=== PATIENT | female | born 1940 | race Caucasian/White ===

== ENCOUNTER 2024-08-04 09:46 | Inpatient (IN) | payer MEDICARE, OTHER ==
[~2024-08-04] VITALS: Ht 160 cm; Wt 54.5 kg
--- NOTE | ~2024-08-04 | OR ---
[facility] [address] [place], [place] [address] Draft DATE OF OPERATION: 08/05/2024 SURGEON: Yue Patrick DO PREOPERATIVE DIAGNOSIS: Upper gastrointestinal bleed. POSTOPERATIVE DIAGNOSES: Upper gastrointestinal bleed with erosive gastritis, distal esophagitis, hiatal hernia and esophageal varices, mid esophagus nonbleeding. ANESTHESIA: IV sedation. ESTIMATED BLOOD LOSS: Minimal with minimal clot in the stomach. No active resection noted. DRAINS: None. COMPLICATIONS: None. DESCRIPTION OF PROCEDURE: The patient was brought to GI lab, placed in supine position. After induction of IV sedation, oropharynx and a bite block. An Olympus video endoscope was introduced esophagus. On the mid esophagus area some small varices were noted. They were nonbleeding, nonerosive. Scope was passed to the distal esophagus. Grade A esophagitis was noted but no ulcerations were appreciated in the distal esophagus. Scope was advanced in the stomach and general x-rays were carried out. There was some minimal clots and stranding of clot in the stomach. The stomach was thoroughly irrigated and clot was aspirated in its entirety. Significant erosive gastritis was appreciated near the body of the stomach with no active bleeding sites apparent. No ulcerations were noted. No intrinsic or extrinsic masses were appreciated. Scope was then advanced through the . Scope was then brought back into the stomach and further irrigation was carried out. No evidence of bleeding ulcer, bleeding erosive gastritis was noted, was retroflex and GE junction was visualized. Small hiatal hernia was noted, but no ulcerations were appreciated. Scope was then placed in neutral position. Stomach was decompressed. Scope was withdrawn in its entirety. The patient PATIENT NAME: PAUL BRYAN OPERATIVE REPORT DATE OF : 40 REPORT #: [id number] PHYSICIAN: YUE PATRICK DO PCP: AUGUST RUIZ DO REPORT IS CONFIDENTIAL AND NOT TO BE RELEASED WITHOUT AUTHORIZATION [address], [place] [address] Draft tolerated the procedure well and went to recovery room in satisfactory condition. DO YIN Rios/KAL /[id number] Copies: ~ PATIENT NAME: PAUL BRYAN OPERATIVE REPORT DATE OF : 40 REPORT #: [id number] PHYSICIAN: YUE PATRICK DO PCP: AUGUST RUIZ DO REPORT IS CONFIDENTIAL AND NOT TO BE RELEASED WITHOUT AUTHORIZATION
[~2024-08-04 09:46] MED LIST: DILANTIN100 MG PO
[2024-08-04] MEDS ORDERED: SODIUM CHLORIDE 0.9% 1,000 ML IV ONE (10:15)
[2024-08-04 10:48] LABS: BASOPHILS 0.4 % (0-2); EOSINOPHILS 0.2 % (0-6); HEMOGLOBIN 7.2 g/dL (12.0-18.0); LYMPHOCYTES 10.5 % (24-44); MCH 26.8 (27-36); MCHC 32.6 g/dl (30-36); MCV 82.3 fl (81-99); MONOCYTES 6.9 % (0-12); PLATELET COUNT 372 K/uL (140-440); RBC 2.68 M/ul (4.3-5.7); RDW 15.5 (10.5-15.0)
[2024-08-04 11:13] LABS: ALBUMIN 3.3 g/dL (3.4-5.0); ALBUMIN/GLOBULIN RATIO 1.14 (1.1-2.4); ANION GAP 6.5 (7-21); BILIRUBIN, TOTAL 0.2 mg/dL (0.2-1.0); BUN/CREATININE RATIO 27.08 (6.0-28.6); CALCIUM 8.5 mg/dL (8.5-10.1); CREATININE, SERUM 0.96 mg/dL (0.55-1.02); POTASSIUM 4.5 mmol/L (3.5-5.1); PROTEIN, TOTAL 6.2 g/dL (6.4-8.2); TSH, 3RD GENERATION 2.018 uIU/mL (0.358-3.740)
[2024-08-04] MEDS ORDERED: PANTOPRAZOLE SODIUM 40 MG/10 ML VIAL IV ONE (11:45)
[2024-08-04] MEDS ORDERED: LORazepam 2 MG/ML VIAL IV ONE ×2 (11:45→12:00)
[2024-08-04 11:55] LABS: ABO O; ANTIBODY SCREEN NEGATIVE; RH POSITIVE
[2024-08-04 12:23] LABS: BILIRUBIN, URINE NEGATIVE (negative); BLOOD/HGB, URINE NEGATIVE (Negative); KETONE, URINE NEGATIVE (Negative); LEUK ESTERASE, URINE NEGATIVE (negative); NITRITE, URINE NEGATIVE (negative); PH, URINE 6.5 (5-7)
--- NOTE | 2024-08-04 12:46 | EKG ---
[facility] [address] [place], [place] [address] Signed Normal sinus rhythm Nonspecific T wave abnormality Abnormal ECG No previous ECGs available Confirmed by Gavin Goldman DO ([id number]) on 08/04/2024 12:46:05 PM Electronically Signed By: GAVIN GOLDMAN DO 08/04/24 1246 PATIENT NAME: PAUL BRYAN Electrocardiogram DATE OF : 40 PHYSICIAN: GAVIN GOLDMAN DO REPORT #: [id number] REPORT IS CONFIDENTIAL AND NOT TO BE RELEASED WITHOUT AUTHORIZATION
[2024-08-04 13:00] LABS: IS CROSSMATCH COMPATIBLE
[2024-08-04 13:00] LABS: ABO O; RH POSITIVE
[2024-08-04] MEDS ORDERED: LACTATED RINGER'S 1,000 ML IV SCH (13:30)
[2024-08-04] MEDS ORDERED: ondansetron HCL 4 MG/2 ML VIAL IV PRN (13:30)
[2024-08-04] MEDS ORDERED: ACETAMINOPHEN 325 MG TAB PO PRN (13:30)
--- NOTE | 2024-08-04 14:00 | NUR ---
PT ARRIVES TO MEDSUR ROOM FROM ED, AMBULATES TO RESTROOM, VOIDS W/O DIFFICULTY, URINE CLEAR, YELLOW. PT AMBULATES TO STANDING SCALE, USES HAND RAIL FOR ASSISTANCE. PT ASSISTED INTO BED. DAUGHTER AND AT THE BEDSIDE. PT EDUCATION ON CURRENT DIET ORDER. ADMISSION QUESTIONS ANSWERED BY PATIENT W/O DIFFICULTY. PT HAS BIRTHMARK ON R HAND. BLOOD BEING ADMINISTERED IN IV ON R WRIST. PT AND FAMILY STATE ALL QUESTIONS HAVE BEEN ANSWERED AT THIS TIME. MD TO BEDSIDE TO DISCUSS POC. PT STATES NO FURTHER NEEDS AT THIS TIME. CALL LIGHT WITHIN REACH. CALL LIGHT EDUCATION GIVEN, PT VERBALIZES UNDERSTANDING.
[2024-08-04 14:05] VITALS: BP 139/58
--- NOTE | 2024-08-04 14:16 | NUR ---
IVs DOCUMENTED ON ADMISSION ARE ACTUALLY IN R WRIST AND L FOREARM, R WRIST IS WHERE BLOOD IS BEING ADMINISTERED WHEN PT TAKEN FROM ED TO MEDSURG ROOM.
[2024-08-04] MEDS ORDERED: PHENYTOIN SODIUM 100 MG CAP PO SCH (15:00)
--- NOTE | 2024-08-04 15:23 | NUR ---
SIEZURE PADS IN PLACE. PT SIGNS CONSENT FORM WITH DR. WILSON AND THIS RN WITNESS. PT REQUESTS ICE CHIPS, GIVEN. PT STATES NO FURTHER NEEDS AT THIS TIME, CALL LIGHT WITHIN REACH.
[2024-08-04 15:44] VITALS: BP 129/58
--- NOTE | 2024-08-04 15:45 | NUR ---
1 UNIT OF BLOOD COMPLETES INFUSING, PT DENIES ANY REACTION, LUNGS AUSCULTATED AND NO SIGNS OF ADVERSE REACTION PRESENT AT THIS TIME. BLOOD TUBING FLUSHED PER POLICY, IV FLUSHED AND LOCKED. POST ADMINISTRATION VSS. PT STATES NO NEEDS AT THIS TIME. BLOOD ADMINISTRATION TAB NOT STARTED WHEN BLOOD ADMIN BEGAN, THIS RN UNABLE TO COMPLETE TAB D/T NOT BEING PRESENT AT BEGINNING OF ADMIN AND NOT HAVING BLOOD TUBING NUMBER AVAILABLE. CALL LIGHT WITHIN REACH.
[2024-08-04] MEDS ORDERED: KEPPRA750 MG PO (17:00)
[2024-08-04] MEDS ORDERED: MIRTAZAPINE7.5 MG PO (17:00)
[2024-08-04] MEDS ORDERED: VITAMIN C500 M1 PO (17:00)
[2024-08-04] MEDS ORDERED: VITAMIN D325 MCG PO (17:01)
[2024-08-04] MEDS ORDERED: VITAMIN B COMP1 EAC1 PO (17:01)
[2024-08-04] MEDS ORDERED: EXCEDRIN EXTRA1 EAC1 PO (17:02)
--- NOTE | 2024-08-04 17:02 | NUR ---
MED REC COMPLETE
--- NOTE | 2024-08-04 17:54 | NUR ---
PATIENT IS LYING IN BED WITH HOB ELEVATED. SEIZURE PADS IN PLACE. PATIENT WITH EYES OPEN AND RESPIRATIONS ARE EVEN AND UNLABORED. PATIENT WITH A VISITOR SITTING IN THE CHAIR AT BEDSIDE. CALL LIGHT AND PERSONAL BELONGINGS ARE WITHIN REACH.
[2024-08-04 18:16] VITALS: BP 132/58
--- NOTE | 2024-08-04 18:20 | NUR ---
PATIENT IS IN HER BED AT THIS TIME, SALES REPRESENTATIVE [employer] CHARTED VITALS AND I&O'S, GOT FRESH ICE CHIPS, FAMILY IN ROOM VISITING, CALL LIGHT WITH IN REACH AND NOTHING ELSE NEEDED AT THIS TIME.
--- NOTE | 2024-08-04 18:30 | NUR ---
PATIENT CALLING SHE NEEDS TO USE THE RESTROOM. PATIENT AMBULATES WITH SBA FROM BED TO RESTROOM. EDUCATED ON HOW TO USE PULL CORD WHEN SHE'S FINISHED, PATIENT VERBALIZES UNDERSTANDING.
--- NOTE | 2024-08-04 18:35 | NUR ---
PT AMBULATES FROM BATHROOM TO BED WITH SBA W/O DIFFICULTY. PT STATES NO FURTHER NEEDS AT THIS TIME. CALL LIGHT WITHIN REACH.
--- NOTE | 2024-08-04 19:30 | NUR ---
REPORT RECEIVED FROM DAYSHIFT RN. PATIENT RESTING IN BED COMFORTABLY WATCHING TV. RESPIRATIONS EVEN AND UNLABORED. SEIZURE PADS IN PLACE. PATIENT DENIES ANY NEEDS AT THIS TIME, IVF INFUSING PER ORDER. CALL LIGHT IN REACH
[2024-08-04 20:10] VITALS: BP 145/61
[2024-08-04 20:12] VITALS: BP 145/61
--- NOTE | 2024-08-04 20:15 | NUR ---
VS OBTAINED AND RECORDED. PATIENT UP TO RESTROOM WITH SBA. VOIDED AND BACK TO BED WITHOUT DIFFICULTY. DENIES ANY NEEDS, CALL LIGHT IN REACH.
[2024-08-04 20:58] LABS: BASOPHILS 0.5 % (0-2); EOSINOPHILS 0.4 % (0-6); HEMATOCRIT 22.9 % (35.0-50.0); HEMOGLOBIN 7.6 g/dL (12.0-18.0); LYMPHOCYTES 23.6 % (24-44); MCH 27.4 (27-36); MCHC 33.3 g/dl (30-36); MCV 82.4 fl (81-99); MONOCYTES 8.2 % (0-12); NEUTROPHILS 67.3 % (39-80); PLATELET COUNT 294 K/uL (140-440); RBC 2.78 M/ul (4.3-5.7); RDW 15.4 (10.5-15.0)
[2024-08-04] MEDS ORDERED: MELATONIN 3 MG TAB PO PRN (21:00)
[2024-08-04] MEDS ORDERED: levETIRAcetam 500 MG TAB PO SCH (21:00)
--- NOTE | 2024-08-04 21:00 | NUR ---
PATIENT CONTINUES TO REST IN BED, WATCHING TV. SEIZURE PADS IN PLACE. SIDE RAILS UP. SCHEDULED MED ADMINISTERED PER ORDER. ASSESSMENT COMPLETED. PATIENT DENIES OTHER NEEDS, CALL LIGHT IN REACH.
--- NOTE | 2024-08-04 22:28 | NUR ---
PRN MEDICATION GIVEN FOR HEADACHE AND SLEEP. PATIENT REMAINS IN BED, SEIZURE PADS IN PLACE. FAMILY IS AT BEDSIDE WITH PATIENT. SCD IN PLACE, CALL LIGHT IN REACH. IVF CONTINUING TO INFUSE PER ORDER.
--- NOTE | 2024-08-04 23:36 | NUR ---
Patient called for assistance to use the restroom. I disconnected her SCDs and unplugged her IV. Afterwards I helped her get situated in bed, attached her SCDs and pluggled IV in. Call light is within reach and nothing else is needed at this time. Also family is in room with her.
--- NOTE | 2024-08-04 23:59 | NUR ---
PATIENT MADE NPO PER ORDER. PATIENT RESTING IN BED, VERBALIZED UNDERSTANDING OF BEING NPO AT THIS TIME. DENIES ANY NEEDS AT THIS TIME. CALL LIGHT IN REACH, FAMILY AT BEDSIDE.
[2024-08-05] VITALS (15 sets, daily range): BP systolic 107–132; BP diastolic 49–72
--- NOTE | 2024-08-05 01:25 | NUR ---
VS OBTAINED AND RECORDED. I&O RECORDED. PATIENT CONTINUES TO REST, RESPIRATIONS EVEN AND UNLABORED. IVF CONTINUING TO INFUSE PER ORDER. NO FURTHER NEEDS IDENTIFIED, CALL LIGHT IN REACH. FAMILY RESTING AT THE BEDSIDE.
--- NOTE | 2024-08-05 04:26 | NUR ---
PATIENT RESTING WITH EYES CLOSED, RESPIRATIONS EVEN AND UNLABORED. FAMILY REMAINS IN ROOM, RESTING. NO NEEDS IDENITFIED, CALL LIGHT IN REACH
--- NOTE | 2024-08-05 05:15 | NUR ---
VS OBTAINED AND RECORDED. PATIENT ASSISTED TO RESTROOM WITH X1 ASSIST. PATIENT REPORTS MINOR DIZZINESS UPON STANDING, AMBULATORY WITH EVEN GAIT. RETURNED TO BED WITHOUT DIFFICULTY, IVF CONTINUING TO INFUSE WITHOUT DIFFICULTY. SEIZURE PADS REMAIN IN PLACE, PATIENT REQUESTS BREAK FROM SCD. DENIES FURTHER NEEDS AT THIS TIME, CALL LIGHT IN REACH
[2024-08-05 05:19] LABS: BASOPHILS 0.7 % (0-2); EOSINOPHILS 1.2 % (0-6); HEMATOCRIT 23.8 % (35.0-50.0); LYMPHOCYTES 27.5 % (24-44); MCH 27.7 (27-36); MCHC 33.8 g/dl (30-36); MONOCYTES 9.5 % (0-12); NEUTROPHILS 61.1 % (39-80); PLATELET COUNT 314 K/uL (140-440); RDW 15.7 (10.5-15.0)
[2024-08-05 05:29] LABS: BUN/CREATININE RATIO 17.85 (6.0-28.6); CALCIUM 8.2 mg/dL (8.5-10.1); CREATININE, SERUM 0.84 mg/dL (0.55-1.02)
--- NOTE | 2024-08-05 07:00 | NUR ---
REPORT RECEIVED FROM BSW DOMINIQUE HICKS. PATIENT IS LYING IN BED WITH HOB ELEVATED. PATIENT REPORTS STILL HAVING A HEADACHE AND FEELING LIKE SHE IS GOING TO THROW UP. PATIENT IS REQUESTING SOMETHING FOR NAUSEA AT THIS TIME. SEIZURE PADS IN PLACE. PATIENT WITH TWO FAMILY MEMBERS AT BEDSIDE. PATIENT STATED NO FURTHER NEEDS AT THIS TIME. CALL LIGHT AND PERSONAL BELONGINGS ARE WITHIN REACH.
--- NOTE | 2024-08-05 07:36 | NUR ---
PATIENT IS LEAVING THE FLOOR AT THIS TIME FOR SURGERY. PATIENT LEFT WITH JONNIE, RN, AND DAUGHTER ON A SURGERY STRETCHER.
[2024-08-05] MEDS ORDERED: LIDOCAINE HCL 2% 5 ML SDV ONE (07:49)
[2024-08-05] MEDS ORDERED: propofoL 200 MG/20 ML VIAL ONE (07:49)
--- NOTE | 2024-08-05 08:25 | NUR ---
PATIENT RETURNED TO THE FLOOR AT THIS TIME. DOMINIQUE JARAMILLO GAVE REPORT TO THIS RN. IV FLUIDS RECONNECTED. PATIENT WITH NO COMPLAINTS OF PAIN AT THIS TIME. IV SITE FLUSHED WITH 10 ML NORMAL SALINE AND IS SALINE LOCKED. PATIENT WITH SEVERAL VISITORS IN THE ROOM AT THIS TIME. PATIENT STATED NO FURTHER NEEDS. CALL LIGHT AND PERSONAL BELONGINGS ARE WITHIN REACH.
--- NOTE | 2024-08-05 08:46 | NUR ---
08/05/24 0846 Angelica Welsh 0805- PT ARRIVES TO PACU FROM ENDO SUITE VIA STRETCHER. PT EYES CLOSED, RESPIRATIONS EVEN AND UNLABORED, NO SIGNS OF DISTRESS. REPORT RECEIVED FROM NADIA MEYER AT BEDSIDE. 0806- ATTEMPT AT VERBAL STIMULI, PT AWAKENS WITHOUT DIFFICULTY AND RESPONDS TO VERBAL STIMULI. PT ENCOURAGED TO TAKE DEEP BREATHS. 0811- PT TITRATED FROM 4L TO 2L VIA NC. PT AWAKE AND TALKING AT THIS TIME TO THIS RN. PT CONTINUES TO STATE NO PAIN, DISCOMFORT, OR NAUSEA. 0813- PT TITRATED FROM 2L TO RA. RESPIRATIONS REMAIN EVEN AND UNLABORED, NO SIGNS OF DISTRESS. O2 >90% VIA CPOX. PT ALERT AND ASKING APPROPRIATE QUESTIONS AT THIS TIME. 0818- PT TRANSFERRED FROM PACU BACK TO MS RM 120. REPORT GIVEN TO ERIC FOX. PT IS ALERT AND ASKING APPROPRIATE QUESTIONS AT THIS TIME, FAMILY AT BEDSIDE. PT TRANSFERRED TO BED W/4PA SLIDE. RN AND FAMILY STATE NO FURTHER QUESTIONS AT THIS TIME. RN AND FAMILY REMAIN AT BEDSIDE.
[2024-08-05] MEDS ORDERED: PANTOPRAZOLE SODIUM 40 MG/10 ML VIAL IV SCH (09:00)
[2024-08-05] MEDS ORDERED: PANTOPRAZOLE SODIUM 40 MG TABEC PO ONE (09:45)
--- NOTE | 2024-08-05 09:47 | NUR ---
PATIENT IS BACK IN BED AFTER AMBULATING TO THE RESTROOM. PATIENT LEFT IN THE RESTROOM BY LORENZA DREW. PATIENT RE-EDUCATED TO CALL WHEN SHE IS FINISHED USING THE RESTRROM FOR SAFETY. PATIENT EXPRESSED UNDERSTANDING AND SAID "I WILL CALL WHEN I AM FINISHED NEXT TIME". PATIENT HAS SEIZURES PADS IN PLACE ON BED. PATIENT PROVIDED ICE WATER PER REQUEST. PATIENT ENCOURAGED TO TAKE IT SLOW AFTER BEING UPGRADED FROM NPO, PATIENT EXPRESSED UNDERSTANDING. PATIENT REPORTED A SLIGHT HEADACHE AND IS NOT REQUESTING MEDICATION AT THIS TIME. PATIENT STATED "I DON'T WANT TYLENOL, IT DIDN'T HELP LAST TIME". PATIENT DENIES FURTHER NEEDS AT THIS TIME. CALL LIGHT AND PERSONAL BELONGINGS ARE WITHIN REACH. IV FLUIDS CONTINUING TO INFUSE.
--- NOTE | 2024-08-05 10:15 | NUR ---
PATIENT IS LYING IN BED WITH HOB ELEVATED AND SEIZURE PADS IN PLACE. PATIENT IS SPEAKING WITH TWO VISITORS ON COUCH AND CHAIR. PATIENT ASSESSMENT COMPLETE AND DOCUMENTED IN THE CHART. PATIENT IS ALERT AND ORIENTED TIME FOUR. PATIENT REPORTS 2/10 PAIN FOR A HEADACHE. PATIENT IS NOT REQUESTING ANYTHING FOR PAIN AT THIS TIME. PATIENT HAS CRACKLES IN LUNG BASES, SLIGHTLY WORSE CRACKLES ON THE LEFT SIDE. PATIENT HAS CLEAR LUNG SOUNDS IN THE UPPER LOBES. PATIENT REPORTS NO SOB, CPOX IN PLACE. PATIENT HAS S1/S2 HEART SOUNDS. PATIENT HAS STRONG PEDAL AND RADIAL PULSES. PATIENT HAS A CAPILLARY REFILL OF LESS THAN 3 SECONDS FOR ALL FOUR EXTREMITIES. PATIENT DENIES NO NUMBNESS, TINGLING OR NAUSEA. PATIENT HAS ACTIVE BOWEL TONES, DENIES TENDERNESS OR DISTENTIONS. PATIENT HAS HAD TWO BOWEL MOVEMENTS THIS MORNING. PATIENT IS VOIDING APPROPRIATELY. PATIENT REPORTS FEELING "SLIGHTLY DIZZY" WHEN INITIALLY AMBULATING. PATIENT'S IV SITES WERE FLUSHED WITH 10ML NS, BOTH ARE PATENT. PATIENT DENIES BURNING OR PAIN WITH FLUSHING. NO LEAKING OR INFILTRATION WAS NOTED DURING FLUSHING. BOTH IV SITES ARE SALINE LOCKED. PATIENT UPGRADED TO CLEAR LIQUIDS. PATIENT HAS FRESH ICE WATER, CLEAR ENSURE, AND CHICKEN BROTH AT THE BEDSIDE PER THE PATIENT'S REQUEST. POST-OP VITAL SIGNS COMPLETE AND DOCUMENTED IN THE CHART. CALL LIGHT AND PERSONAL BELONGINGS ARE WITHIN REACH.
--- NOTE | 2024-08-05 10:52 | NUR ---
PT AMBULATED TO RESTROOM TO VOID CL YELLOW URINE WITH SBA, TOLERATED WELL. FAMILY AT BEDSIDE AND CALL LIGHT WITHIN REACH. NO REQUESTS AT THIS TIME.
--- NOTE | 2024-08-05 11:08 | NUR ---
PATIENT IS SITTING UPRIGHT IN BED AT THIS TIME. PATENT IS IN THE ROOM AND THEY ARE TALKING TO ONE ANOTHER. SEIZURE PADS IN PLACE ON THE BED. CPOX AAT BEDSIDE. CALL LIGHT AND PERSONAL BELONGINGS ARE WITHIN REACH.
[2024-08-05] MEDS ORDERED: PHARMACY RENAL DOSE ADJUSTMENT 1 DOSE MISC PO SCH (12:00)
--- NOTE | 2024-08-05 12:05 | NUR ---
PATIENT IS LYING IN BED WITH HOB ELEVATED AND SEIZURE PADS IN PLACE. POST-OP VITALS TAKEN AND DOCUMENTED IN CHART. PATIENT HAS 6 VISITORS IN THE ROOM AT THIS TIME. TV IS ON AND PATIENT IS SPEAKING WITH FAMILY AT THIS TIME. FRESH ICE WATER PROVIDED PER THE PATIENT'S REQUEST. CALL LIGHT AND PERSONAL BELONGINGS ARE WITHIN REACH.
--- NOTE | 2024-08-05 13:13 | NUR ---
PATIENT IS LYING IN BED WITH HOB ELEVATED. PATIENT HAS MULTIPLE VISITORS IN THE ROOM AT THIS TIME. PATIENT'S VITAL SIGNS DOCUMENTED IN CHART. PATIENT DENIES FURTHER NEEDS AT THIS TIME. PATIENT STATES SHE STILL HAS A 2/10 HEADACHE, BUT IS NOT REQUESTING MEDICATIONS AT THIS TIME. CALL LIGHT AND PERSONAL BELONGINGS ARE WITHIN REACH.
--- NOTE | 2024-08-05 14:28 | NUR ---
PATIENT IS LYING IN BED ON HER SIDE WITH HOB ELEVATED. PATIENT HAS ONE VISITOR AT THIS TIME. PATIENT REPORTS "NAGGING HEADACHE" AND BEING "TIRED". PATIENT IS NOT REQUESTING ANYTHING AT THIS TIME. PATIENT DENIES FURTHER NEEDS. CALL LIGHT AND PERSONAL BELONGINGS ARE WITHIN REACH. PATIENT HAS SEIZURE PADS IN PLACE AT THIS TIME.
--- NOTE | 2024-08-05 15:12 | NUR ---
PATIENT IS BACK TO BED WITH SEIZURE PADS IN PLACE. PATIENT AMBULATED FROM THE RESTROOM TO BED WITH A STEADY GAIT. SHE REPORTED "FEELING SICK TO HER STOMACH" AND HAVING "A NAGGING HEADACHE". PATIENT REPORTS "I WILL TRY ANYTHING AT THIS POINT," WHEN ASKED IS SHE WANTS MEDICATION. PATIENT HAS CPOX IN PLACE AND AT THE BEDSIDE. PATIENT DENIES FURTHER NEEDS. CALL LIGHT AND PERSONAL BELONGINGS ARE WITHIN REACH. PRIMARY RN, AMADOU WEBERAGATED MEDICATION ADMINISTRATION TO DOMINIQUE GOMEZ.
--- NOTE | 2024-08-05 16:05 | NUR ---
PATIENT IS LYING IN BED WITH HOB ELEVATED AND CPOX IN PLACE. FOCUSED ASSESSMENTS COMPLETE AND DOCUMENTED IN THE CHART. BOTH IV SITES FLUSHED WITH 10ML NS EACH. PATIENT DENIED BURNING OR IRRITATION FOR BOTH SITES. THERE WERE NO SIGNS OF LEAKING OR INFILTRATION FOR BOTH IV SITES. PATIENT HAS ACTIVE BOWEL TONES AND DENIES TENDERNESS OR DISTENTION. PATIENT REPORTS 2/10 "NAGGING HEADACHE". PATIENT HAS COLD WASH CLOTH ON HER FOREHEAD AND RECEIVED TYLENOL AT 1517. PATIENT HAS CLEAR UPPER LOBES AND CRACKLES IN THE BASES. THE CRACKLES ARE WORSE ON THE LEFT SIDE OF THE LUNGS. PATIENT HAS NO COMPLAINTS OF SOB. PATIENT DENIES FURTHER NEEDS AT THIS TIME. CALL LIGHT AND PERSONAL BELONGINGS ARE WITHIN REACH AND SEIZURE PADS ARE IN PLACE.
--- NOTE | 2024-08-05 17:15 | NUR ---
PATIENT IS LYING IN BED WITH HOB ELEVATED. PATIENT HAS SEIZURE PADS IN PLACE AND TRAY AT THE BEDSIDE. CALL LIGHT AND PERSONAL BELONGINGS ARE WITHIN REACH.
--- NOTE | 2024-08-05 18:36 | NUR ---
PATIENT IS LYING IN BED WITH HOB ELEVATED AND SEIZURE PADS IN PLACE. PATIENT HAS TWO VISITORS AT THIS TIME. PATIENT DENIES FURTHER NEEDS. CALL LIGHT AND PERSONAL BELONGINGS ARE WITHIN REACH AT THIS TIME.
--- NOTE | 2024-08-05 19:32 | NUR ---
REPORT RECEIVED FROM DAY SHIFT RN. PT LYING IN BED ALERT AND ORIENTED. DENIES NEEDS. WHITE BOARD UPDATED. CALL LIGHT IN REACH.
--- NOTE | 2024-08-05 20:04 | NUR ---
PATIENT LAYING IN BED WATCHING TV, I FILLED HER WATER AND SHE DENIED ANY OTHER NEEDS AT THIS TIME. CALL LIGHT IN REACH.
[2024-08-05] MEDS ORDERED: MIRTAZAPINE 15 MG TAB PO SCH (21:00)
--- NOTE | 2024-08-05 22:07 | NUR ---
EVENING ASSESSMENT COMPLETE. SCHEDULED MEDS ADMIN PER EMAR. PT REPORTS "NAGGING" 2/10 HEADACHE PAIN. PRN FOR PAIN AND SLEEP ADMIN. PT DENIES NAUSEA. UP TO BR WITH SBA TO VOID. BACK TO BED, FARHAT WELL. GAIT STEADY. PT DENIES DIZZINESS WITH AMBULATION. IN RECLINER TO STAY THE NIGHT. PT DENIES QUESTIONS OR CONCERNS. CALL LIGHT IN REACH. BED ALARM FOR SAFETY.
[2024-08-05] MEDS ORDERED: TRAMADOL HCL 50 MG TAB PO PRN (23:30)
--- NOTE | 2024-08-05 23:45 | NUR ---
PT SITTING ON SIDE OF BED. REPORTS INCREASED HEADACHE PAIN AND RESTLESS LEGS. NO PRN'S AVAILABLE. MD NOTIFIED. NEW TELEPHONE ORDERS RECEIVED VERIFIED WITH READBACK METHOD. PRN FOR PAIN ADMIN. NO FURTHER NEEDS AT THIS TIME. IN RECLINER. BED ALARM FOR SAFETY. CALL LIGHT IN REACH.
--- NOTE | 2024-08-06 02:11 | NUR ---
CPOX ALARMING. ISSUE RESOLVED. PT DENIES PAIN OR RESTLESS LEGS AT THIS TIME. NO NEEDS REPORTED. BED ALARM IN PLACE. CALL LIGHT IN REACH.
--- NOTE | 2024-08-06 02:18 | NUR ---
RT DISCONTINUED CPOX BECAUSE PAUL REMAINS AT AN SPO2 OF 92-97%. ADDITIONALLY, PAUL KEEPS FIDDLING WITH THE FINGER STICKY PROBE, SO FOR PATIENT COMFORT IT HAS BEEN REMOVED AND DISCONTINUED.
--- NOTE | 2024-08-06 04:54 | NUR ---
PT RESTING IN BED WITH EYES CLOSED. RESPIRATIONS EVEN. CALL LIGHT IN REACH.
[2024-08-06 05:14] VITALS: BP 115/49
[2024-08-06 05:14] LABS: BASOPHILS 0.6 % (0-2); EOSINOPHILS 1.5 % (0-6); HEMATOCRIT 22.7 % (35.0-50.0); HEMOGLOBIN 7.6 g/dL (12.0-18.0); LYMPHOCYTES 24.2 % (24-44); MCH 27.7 (27-36); MCHC 33.3 g/dl (30-36); MCV 83.1 fl (81-99); MONOCYTES 8.4 % (0-12); NEUTROPHILS 65.3 % (39-80); PLATELET COUNT 312 K/uL (140-440); RBC 2.73 M/ul (4.3-5.7); RDW 16.3 (10.5-15.0)
[2024-08-06 05:25] LABS: ANION GAP 9.1 (7-21); BUN/CREATININE RATIO 11.23 (6.0-28.6); CALCIUM 8.3 mg/dL (8.5-10.1); CREATININE, SERUM 0.89 mg/dL (0.55-1.02); MAGNESIUM 2.1 mg/dL (1.8-2.4); POTASSIUM 4.1 mmol/L (3.5-5.1)
--- NOTE | 2024-08-06 07:10 | NUR ---
RECIEVED REPORT FROM DOMINIQUE CATHERINE. PT RESTING IN BED WITH EYES CLOSED, BREATHING EVEN AND UNLABORED. AT THE BEDSIDE. SEIZURE PADS IN PLACE. CALL LIGHT WITHIN REACH.
--- NOTE | 2024-08-06 08:13 | NUR ---
HOURLY ROUNDING. PATIENT IS CURRENLTY SLEEPING, DAUGHTER AT BEDSIDE. NO REQUEST AT THIS TIME
--- NOTE | 2024-08-06 08:30 | NUR ---
PT RESTING IN BED WITH EYES CLOSED, BREATHING EVEN AND UNLABORED. AND DAUGHTER AT THE BEDSIDE. CALL LIGHT WITHIN REACH.
[2024-08-06] MEDS ORDERED: PANTOPRAZOLE SODIUM 40 MG TABEC PO SCH ×2 (09:00→21:00)
--- NOTE | 2024-08-06 09:12 | NUR ---
DR. VARMA TO BEDSIDE TO DISCUSS POC. PT'S AND DAUGHTER AT THE BEDSIDE. PT AWAKENS, FEELS "GROGGY". PT DENIES PAIN AT THIS TIME. PT STATES NO DARK STOOL SINCE YESTERDAY MORNING. PT TAKES PO MEDICATION W/O DIFFICULTY. PT AND FAMILY STATE NO FURTHER NEEDS AT THIS TIME. CLEARS PT TO ADVANCE DIET. PT REQUESTS BREAKFAST, CALLED TO KITCHEN.
[2024-08-06 09:37] LABS: IS CROSSMATCH COMPATIBLE
[2024-08-06 09:48] VITALS: BP 131/60
[2024-08-06] MEDS ORDERED: SUCRALFATE 1 GM TAB PO SCH (11:00)
[2024-08-06] MEDS ORDERED: TRAMADOL HCL50 MG PO (11:10)
--- NOTE | 2024-08-06 11:10 | NUR ---
VSS. BLOOD CHECKED AT THE BEDSIDE WITH DOMINIQUE NUNO. BLOOD STARTED AT 11:18. PT EDUCATION ON SIGNS AND SYMPTOMS OF REACTION, PT VERBALIZES UNDERSTANDING. THIS RN AT THE BEDSIDE FOR FIRST 15 MINUTES OF INFUSION. PT DENIES ANY REACTION SYMPTOMS. LUNG SOUNDS CONTINUE TO BE CLEAR. 15 MINUTE VSS. RATE OF BLOOD ADMINISTRATION INCREASED FROM 75 TO 250ML/HR. PT REQUESTS MORE ICE WATER, GIVEN. PT STATES NO FURTHER NEEDS AT THIS TIME. CALL LIGHT WITHIN REACH. AT THE BEDSIDE.
[2024-08-06] MEDS ORDERED: SUCRALFATE1 GM PO (11:11)
[2024-08-06] MEDS ORDERED: PROTONIX40 MG PO (11:13)
[2024-08-06] MEDS ORDERED: PANTOPRAZOLE SO40 MG PO (11:14)
[2024-08-06 11:22] VITALS: BP 131/60
--- NOTE | 2024-08-06 12:10 | NUR ---
RIGHT HAND IV IS LEAKING BLOOD, INFUSION SWITCHED TO LEFT A/C. RIGHT HAND IV FLUSHED AND SEEMS INTACT, BUT LEFT SALINE LOCKED.
--- NOTE | 2024-08-06 12:26 | NUR ---
HOURLY ROUNDING. PATIENT HAS NO REQUEST AT THE MOMMENT, IS AT BEDSIDE. PATEINT REQUESTED A COFFEE, COFEE HAS BEEN GIVEN
--- NOTE | 2024-08-06 12:30 | NUR ---
PT SITTING UP IN BED EATING LUNCH INDEPENDENTLY W/O DIFFICULTY. PT STATES NO CHANGES SINCE STARTING BLOOD ADMINISTRATION. PT STATES NO NEEDS AT THIS TIME. FAMILY AT THE BEDSIDE. CALL LIGHT WITHIN REACH.
--- NOTE | 2024-08-06 13:08 | NUR ---
NS STARTED AT 250ML/HR TO FLUSH BLOOD ADMINISTRATION TUBING. PT DENIES ANY REACTION SIGNS/SYMPTOMS AT THIS TIME. PT'S DAUGHTER AT THE BEDSIDE, CALL LIGHT WITHIN REACH, PT STATES NO NEEDS AT THIS TIME.
[2024-08-06 13:35] VITALS: BP 139/61
--- NOTE | 2024-08-06 13:35 | NUR ---
BLOOD ADMIN COMPLETE. VSS. NO SIGNS OR SYMPTOMS OF REACTION. BOTH IV'S DC'D. PT DRESSES SELF. PT LEAVING WITH ALL BELONGINGS. PT WHEELED TO FRONT OF BUILDING.
[2024-08-06 13:40] VITALS: BP 139/61
== END 2024-08-06 14:05 | disposition home or self-care (01) | DRG 368 ==
LOC: ED 09:46 → MS 13:26
PROVIDERS: Emergency Medicine; Student in an Organized Health Care Education/Training Program; Surgery; ADMIT Student in an Organized Health Care Education/Training Program; ATTEND Student in an Organized Health Care Education/Training Program
PROC: 30233N1 Transfusion of Nonautologous Red Blood Cells into Peripheral Vein, Percutaneous Approach (ICD-10-PCS; 2024-08-04)
PROC: 0DJ08ZZ Inspection of Upper Intestinal Tract, Via Natural or Artificial Opening Endoscopic (ICD-10-PCS; principal; 2024-08-05 07:16)
DX: K20.91 Esophagitis, unspecified with bleeding (principal); I85.01 Esophageal varices with bleeding; K29.01 Acute gastritis with bleeding; D62 Acute posthemorrhagic anemia; Z66 Do not resuscitate; K44.9 Diaphragmatic hernia without obstruction or gangrene; G40.909 Epilepsy, unspecified, not intractable, without status epilepticus; M54.50 Low back pain, unspecified; G89.29 Other chronic pain; Z91.041 Radiographic dye allergy status; Z79.899 Other long term (current) drug therapy; Z98.890 Other specified postprocedural states
CPT/HCPCS: 36415; 71045; 80048; 80053; 81003; 83735; 84443; 84484; 85025; 86850; 86900; 86901; 86922; 93005; 93010; 94762; A9270; G0008; J2003; J2060; J2405; J2470; J2704; J7030; J7121; P9016